=== PATIENT | male | born 1995 | race Caucasian/White ===

== ENCOUNTER 2016-11-05 07:47 | Emergency (ER) | payer SELFPAY ==
[2016-11-05 09:23] VITALS: BP 115/75
--- NOTE | 2016-11-05 10:33 | UC ---
Knee Pain HPI - HPI Summary HPI Summary: pt present with c/o right knee pain and swelling. Pain and swelling sudden onset s/p jumping and falling while playing volley ball on 11/02. - History of Current Complaint Chief Complaint: UCLowerExtremity Stated Complaint: RIGHT KNEE INJURY Time Seen by Provider: 11/05/16 10:08 Hx Obtained From: Patient Onset/Duration: Sudden Onset, Lasting Days Severity Initially: Moderate Severity Currently: Moderate Character: Dull, Aching, Stiffness Aggravating Factor(s): Movement, Weight Bearing, Prolonged Standing, Stairs Alleviating Factor(s): Rest, Position, Cold Associated Signs And Symptoms: Positive: Swelling Able to Bear Weight: No - Allergies/Home Medications Allergies/Adverse Reactions: Allergies Allergy/AdvReac Type Severity Reaction Status Date / Time No Known Allergies Allergy Verified 11/05/16 09:19 Home Medications: Home Medications Acetaminophen TAB* [Tylenol TAB*] 650 mg PO Q4H PRN 11/05/16 [History Confirmed 11/05/16] PMH/Surg Hx/FS Hx/Imm Hx Previously Healthy: Yes - Surgical History Surgical History: None - Family History Known Family History: Positive: Cardiac Disease - Social History Lives: With Family Alcohol Use: None Substance Use Type: None Smoking Status (MU): Never Smoked Tobacco Type: Smokeless Tobacco Amount Used/How Often: 1 can weekly Review of Systems Constitutional: Negative Skin: Negative Eyes: Negative ENT: Negative Respiratory: Negative Cardiovascular: Negative Gastrointestinal: Negative Genitourinary: Negative Motor: Decreased ROM Neurovascular: Negative Musculoskeletal: Arthralgia, Decreased ROM, Edema, Myalgia - right knee Neurological: Negative Psychological: Negative All Other Systems Reviewed And Are Negative: Yes Physical Exam Triage Information Reviewed: Yes Appearance: Well-Appearing Vital Signs: Initial Vital Signs Temp 97.4 F 11/05/16 09:20 Pulse 72 11/05/16 09:20 Resp 16 11/05/16 09:20 BP 115/75 11/05/16 09:20 Pulse Ox 99 11/05/16 09:20 Vital Signs Reviewed: Yes Eye Exam: Normal Neck exam: Normal Respiratory Exam: Normal Cardiovascular Exam: Normal Musculoskeletal: Positive: Strength Limited @ - right knee, ROM Limited @ - right knee, Edema @ - right knee Neurological Exam: Normal Psychological Exam: Normal Skin Exam: Normal Knee Pain Course/Dx - Course Course Of Treatment: I referred the pt to Dr. Rolon for folow up. i wexplained that I had consideration to think that he may have injured a ligament or the meniscus of right knee. Pt is Spirit[employer] and said he would consider the referral but may not follow up. - Differential Dx/Diagnosis Differential Diagnosis/HQI/PQRI: Fracture (Closed), Internal Derangement Of Knee , Sprain Provider Diagnoses: right knee sprain Discharge - Discharge Plan Condition: Stable Disposition: HOME Patient Education Materials: Knee Sprain (ED) Referrals: Luis Rolon MD [Medical Doctor] - No Primary Care Phys,NOPCP [Primary Care Provider] -
--- NOTE | 2016-11-05 11:20 | RAD ---
INDICATION: Right knee pain after a fall playing volleyball COMPARISON: None TECHNIQUE: 4 view radiograph of the right knee. FINDINGS: The visualized bones are well-corticated and properly aligned. The joint spaces are properly maintained. There is no radiographic evidence of joint effusion. There is no acute fracture, dislocation or other focal bony abnormality. IMPRESSION: Normal knee radiograph as described above. If the patient's symptoms persist, follow-up imaging is recommended.
== END 2016-11-05 11:11 | disposition home or self-care (01) ==
LOC: UCCORT 07:47
DX: S83.91XA Sprain of unspecified site of right knee, initial encounter (principal); W18.39XA Other fall on same level, initial encounter; Y93.68 Activity, volleyball (beach) (court); F17.220 Nicotine dependence, chewing tobacco, uncomplicated
CPT/HCPCS: 99202; G0463